=== PATIENT | male | born 1960 | race Caucasian/White ===

== ENCOUNTER 2017-06-15 06:35 | Day surgery (SDC) | payer BC, OTHER ==
[~2017-06-15] VITALS: Ht 177.8 cm; Wt 126.3 kg
[~2017-06-15 06:35] MED LIST: AMLO5 PO; CRUTCH2 USE; Calcitriol0.5 MCG PO; DOCU100 PO; ERGO50000 PO; HYDACE5 PO; HYDACE5325 PO; IBUP400 PO; PRED10 PO; [UNRECOGNIZED DRUG - REMARK]
[2017-06-15] MEDS ORDERED: LISI5 (07:11)
[2017-06-15] MEDS ORDERED: ERGO400 (07:11)
[2017-06-15] MEDS ORDERED: NITR.4SL (07:12)
[2017-06-15] MEDS ORDERED: ASPI81CH (07:12)
[2017-06-15] MEDS ORDERED: PANT40 (07:13)
== END 2017-06-15 08:32 | disposition home or self-care (01) ==
LOC: ORSCSDS 06:35
PROVIDERS: Internal Medicine Gastroenterology
PROC: 0DB68ZX Excision of Stomach, Via Natural or Artificial Opening Endoscopic, Diagnostic (ICD-10-PCS; principal; 2017-06-15 08:00)
PROC: 0D758ZZ Dilation of Esophagus, Via Natural or Artificial Opening Endoscopic (ICD-10-PCS; principal; 2017-06-15 08:00)
DX: R13.10 Dysphagia, unspecified (principal); K29.70 Gastritis, unspecified, without bleeding; B96.81 Helicobacter pylori [H. pylori] as the cause of diseases classified elsewhere; I10 Essential (primary) hypertension; E66.01 Morbid (severe) obesity due to excess calories; Z68.39 Body mass index [BMI] 39.0-39.9, adult; Z79.899 Other long term (current) drug therapy
CPT/HCPCS: 88305; 88342; C1726; J0330; J1980; J2405; J7120

== ENCOUNTER 2017-07-14 10:59 | Emergency (ER) | payer BC, OTHER ==
[~2017-07-14] VITALS: Ht 177.8 cm; Wt 79.4 kg
[~2017-07-14 10:59] MED LIST changes: +ASPI81CH; +ERGO400; +LISI5; +NITR.4SL; +PANT40
[2017-07-14] MEDS ORDERED: Calcitriol0.25 MCG (11:07)
[2017-07-14] MEDS ORDERED: Mobic15 MG PO (11:44)
[2017-07-14] MEDS ORDERED: CYCL10 PO (11:44)
== END 2017-07-14 11:50 | disposition home or self-care (01) ==
LOC: ER 10:59
DX: M43.6 Torticollis (principal); Z79.899 Other long term (current) drug therapy; Z79.82 Long term (current) use of aspirin; I10 Essential (primary) hypertension; Z87.442 Personal history of urinary calculi
CPT/HCPCS: 96372; 99283; J1885

== ENCOUNTER → 2019-10-25 | Outpatient (CLI) | payer BC, OTHER ==
[~2019-10-25] MED LIST changes: +CYCL10 PO; +Calcitriol0.25 MCG; +Mobic15 MG PO
[2019-10-25 14:43] LABS: Source, Urine Clean Catch
[2019-10-25 17:22] LABS: Bilirubin, Urine Neg (Neg); Blood, Urine 1+ (Neg); Glucose Qualitative, Urine Neg (Neg); Ketones, Urine Neg (Neg); Leukocyte Esterase, Urine 1+ (Neg); Nitrite, Urine Neg (Neg); Protein, Urine 2+ (Neg); Specific Gravity, Urine 1.025 (1.003-1.022); Urobilinogen, Urine NORM (Normal)
[2019-10-25 17:28] LABS: Appearance, Urine Clear (Clear); Color, Urine Yellow (P-Yellow)
[2019-10-25 17:30] LABS: Bacteria Rare /hpf; Calcium Oxalate Crystals Few /hpf; Red Blood Cells, Urine 0-2 /hpf (0-2); Squamous Epithelial Cells Not Seen /hpf (Few)
== END | disposition home or self-care (01) ==
LOC: LAB SHORT 14:39 → LAB 14:39 → LAB FUT 10-23 15:10
PROVIDERS: Internal Medicine
DX: R31.9 Hematuria, unspecified (principal); E55.9 Vitamin D deficiency, unspecified
CPT/HCPCS: 81001; 87086

== ENCOUNTER 2020-02-22 07:18 | Emergency (ER) | payer BC, OTHER ==
[~2020-02-22] VITALS: Ht 177.8 cm; Wt 131.5 kg
[~2020-02-22 07:18] MED LIST changes: +METPRE4DP PO; +OXYC5 PO; +Robaxin-750750 MG PO
[2020-02-22 08:53] LABS: BASOPHILS ABSOLUTE AUTO 0.04 K/mm3 (0.00-0.23); BASOPHILS PERCENT AUTO 1 % (0-2); EOSINOPHILS ABSOLUTE AUTO 0.07 K/mm3 (0.00-0.68); EOSINOPHILS PERCENT AUTO 1 % (0-6); Hemoglobin 13.4 g/dL (13.5-17.5); IMMATURE GRAN ABSOLUTE AUTO 0.05 K/mm3 (0.00-0.10); IMMATURE GRAN PERCENT AUTO 1 % (0-1); LYMPHOCYTES ABSOLUTE AUTO 1.78 K/mm3 (0.84-5.20); LYMPHOCYTES PERCENT AUTO 22 % (21-46); MONOCYTES ABSOLUTE AUTO 0.41 K/mm3 (0.16-1.47); MONOCYTES PERCENT AUTO 5 % (4-13); Mean Corpuscular HGB Conc 31.9 g/dL (31.5-36.5); Mean Corpuscular Volume 88 fL (80-100); Mean Platelet Volume 10.6 fL (9.1-12.4); NEUTROPHILS ABSOLUTE AUTO 5.84 K/mm3 (1.96-9.15); NEUTROPHILS PERCENT AUTO 71 % (41-73); Platelet Count 281 K/mm3 (150-400); RDW Coefficient Variation 12.9 % (11.7-14.2); RDW Standard Deviation 41.9 fL (35.1-46.3); Red Blood Cell Count 4.78 M/mm3 (4.30-5.90); White Blood Cell Count 8.19 K/mm3 (4.00-11.30)
[2020-02-22 09:18] LABS: Alanine Aminotransfer (ALT/SGP 32 U/L (12-78); Albumin, Blood 3.3 g/dL (3.4-5.0); Albumin/Globulin Ratio 0.8 (0.8-1.8); Alk Phos 64 U/L (50-136); Anion Gap 5 mmol/L (6-16); Aspartate Aminotrans (AST/SGOT 36 U/L (12-37); Bilirubin, Total 0.5 mg/dL (0.1-1.0); Blood Urea Nitrogen 17 mg/dL (8-24); Bun/Creatinine Ratio 16.5 (12.0-20.0); CO2, Blood 26 mmol/L (21-32); Calcium, Blood 8.9 mg/dL (8.5-10.1); Chloride, Blood 112 mmol/L (98-108); Creatinine, Blood 1.03 mg/dL (0.60-1.20); Glomerular Filtration Rate >60 (60-); Glucose, Blood 110 mg/dL (70-99); Potassium, Blood 5.1 mmol/L (3.5-5.5); Sodium, Blood 143 mmol/L (136-145); Total Protein, Blood 7.3 g/dL (6.4-8.2); Troponin I <0.015 ng/mL (0.000-0.040)
[2020-02-22] MEDS ORDERED: HYDR1TAB94 PO (10:24)
[2020-02-22] MEDS ORDERED: PRED20 PO (10:24)
== END 2020-02-22 10:35 | disposition home or self-care (01) ==
LOC: ER 07:18
PROVIDERS: Emergency Medicine
DX: R22.1 Localized swelling, mass and lump, neck (principal); I10 Essential (primary) hypertension; Z79.82 Long term (current) use of aspirin; Z79.899 Other long term (current) drug therapy
CPT/HCPCS: 36415; 70491; 80053; 83880; 84484; 85025; 85379; 93005; 93010; 96374; 96375; 99284-25; J1100; J2405; J3010; Q9967

== ENCOUNTER 2020-02-26 03:13 | Emergency (ER) | payer BC, OTHER ==
[~2020-02-26] VITALS: Ht 177.8 cm; Wt 131.5 kg
[~2020-02-26 03:13] MED LIST changes: +HYDR1TAB94 PO; +PRED20 PO
[2020-02-26 04:07] LABS: BASOPHILS ABSOLUTE AUTO 0.05 K/mm3 (0.00-0.23); BASOPHILS PERCENT AUTO 1 % (0-2); EOSINOPHILS ABSOLUTE AUTO 0.07 K/mm3 (0.00-0.68); EOSINOPHILS PERCENT AUTO 1 % (0-6); Hematocrit 43.4 % (37.0-53.0); Hemoglobin 13.6 g/dL (13.5-17.5); IMMATURE GRAN ABSOLUTE AUTO 0.48 K/mm3 (0.00-0.10); IMMATURE GRAN PERCENT AUTO 5 % (0-1); LYMPHOCYTES ABSOLUTE AUTO 3.37 K/mm3 (0.84-5.20); LYMPHOCYTES PERCENT AUTO 31 % (21-46); MONOCYTES ABSOLUTE AUTO 0.87 K/mm3 (0.16-1.47); MONOCYTES PERCENT AUTO 8 % (4-13); Mean Corpuscular HGB 27.9 pg (26.0-34.0); Mean Corpuscular HGB Conc 31.3 g/dL (31.5-36.5); Mean Corpuscular Volume 89 fL (80-100); Mean Platelet Volume 10.5 fL (9.1-12.4); NEUTROPHILS ABSOLUTE AUTO 5.92 K/mm3 (1.96-9.15); NEUTROPHILS PERCENT AUTO 55 % (41-73); Platelet Count 296 K/mm3 (150-400); RDW Coefficient Variation 13.2 % (11.7-14.2); RDW Standard Deviation 42.7 fL (35.1-46.3); Red Blood Cell Count 4.87 M/mm3 (4.30-5.90); White Blood Cell Count 10.76 K/mm3 (4.00-11.30)
[2020-02-26 04:26] LABS: Albumin, Blood 3.2 g/dL (3.4-5.0); Albumin/Globulin Ratio 0.9 (0.8-1.8); Bilirubin, Total 0.2 mg/dL (0.1-1.0); Bun/Creatinine Ratio 18.2 (12.0-20.0); Calcium, Blood 8.2 mg/dL (8.5-10.1); Creatinine, Blood 1.32 mg/dL (0.60-1.20); Globulin, Blood 3.4 g/dL (2.2-4.0); Potassium, Blood 3.6 mmol/L (3.5-5.5); Total Protein, Blood 6.6 g/dL (6.4-8.2)
[2020-02-26] MEDS ORDERED: Cleocin HCl300 MG PO (06:04)
== END 2020-02-26 07:10 | disposition home or self-care (01) ==
LOC: ER 03:13
PROVIDERS: Emergency Medicine
DX: R22.1 Localized swelling, mass and lump, neck (principal); M54.2 Cervicalgia; I10 Essential (primary) hypertension; Z87.442 Personal history of urinary calculi; Z79.82 Long term (current) use of aspirin; Z79.52 Long term (current) use of systemic steroids
CPT/HCPCS: 36415; 76536; 80053; 85025; 96374; 99284-25

== ENCOUNTER 2020-06-26 09:18 | Day surgery (SDC) | payer OTHER ==
[~2020-06-26] VITALS: Ht 177.8 cm; Wt 132.2 kg
[~2020-06-26 09:18] MED LIST changes: +Cleocin HCl300 MG PO
[2020-06-26] MEDS ORDERED: IBUP800 (09:32)
[2020-06-26] MEDS ORDERED: TUMS500 MG (09:34)
--- NOTE | 2020-06-26 11:23 | NUR ---
06/26/20 1123 Coreen Lazaro PATIENT REFUSED OFFERS OF PO FLUIDS
== END 2020-06-26 11:13 | disposition home or self-care (01) ==
LOC: ORSCSDS 09:18
PROVIDERS: Internal Medicine Gastroenterology
PROC: 0DB58ZX Excision of Esophagus, Via Natural or Artificial Opening Endoscopic, Diagnostic (ICD-10-PCS; principal; 2020-06-26 10:45)
PROC: 0D758ZZ Dilation of Esophagus, Via Natural or Artificial Opening Endoscopic (ICD-10-PCS; principal; 2020-06-26 10:45)
PROC: 0DB68ZX Excision of Stomach, Via Natural or Artificial Opening Endoscopic, Diagnostic (ICD-10-PCS; principal; 2020-06-26 10:45)
DX: R13.10 Dysphagia, unspecified (principal); K29.70 Gastritis, unspecified, without bleeding; K29.80 Duodenitis without bleeding; K44.9 Diaphragmatic hernia without obstruction or gangrene; K22.2 Esophageal obstruction; I10 Essential (primary) hypertension; E66.01 Morbid (severe) obesity due to excess calories; Z68.41 Body mass index [BMI] 40.0-44.9, adult
CPT/HCPCS: 88305; 88342; C1726; J2001; J2704; J7120

== ENCOUNTER 2020-12-20 10:21 | Day surgery (SDC) | payer BC, OTHER ==
[~2020-12-20 10:21] MED LIST changes: +IBUP800; +NITR.4SL SL; +THERA-D2000 UNIT PO; +TUMS500 MG
[2020-12-20] MEDS ORDERED: LISI5 PO (12:29)
--- NOTE | 2020-12-20 14:55 | NUR ---
FULL REPORT PROVIDED RAFA PATE TO ASSUME CARE OF PT.
--- NOTE | 2020-12-20 15:04 | NUR ---
PT TAKEN TO XRAY VIA WHEELCHAIR AND BACK TO RECOVERY ROOM WITH NO COMPLICATIONS.
--- NOTE | 2020-12-20 16:15 | NUR ---
DISCHARGE INSTRUCTIONS GIVEN WITH VERBAL AND WRITTEN UNDERSTANDING.
--- NOTE | 2020-12-20 16:44 | NUR ---
dr sanchez notified of pt large hematoma that is still at pacemaker site. We will be taking pt back in to the [facility] to evacuate and stop the bleeding. daughter notified.
--- NOTE | 2020-12-20 18:21 | NUR ---
IV ANCEF INFUSED AND SALINE LOCK REMOVED WITH CATHETER INTACT. PACEMAKER SITE WITHOUT SWELLING OR HEMATOMA. PT PLACED IN ARM SLING ON LEFT PRIOR TO DISCHARGE. PT TO PRIVATE VEHICLE PER W/C WITH ONE STAFF.
== END 2020-12-20 18:30 | disposition home or self-care (01) ==
LOC: ECHO 10:21 → EDSTATUS 11:00 → MHTC 11:44 → ECHO 18:30
DX: I49.5 Sick sinus syndrome (principal)
CPT/HCPCS: 33208; 71046; 99152; 99153; C1785; C1898; C8929; J0690; J1580; J1644; J2250; J3010; J7030; J7040; Q9957; Q9967

== ENCOUNTER 2020-12-27 13:52 | Observation (INO) | payer BC, OTHER ==
[~2020-12-27] VITALS: Ht 177.8 cm; Wt 132.5 kg
[~2020-12-27 13:52] MED LIST changes: +LISI5 PO
[2020-12-27 14:39] LABS: BASOPHILS ABSOLUTE AUTO 0.05 K/mm3 (0.00-0.23); BASOPHILS PERCENT AUTO 1 % (0-2); EOSINOPHILS PERCENT AUTO 1 % (0-6); Hematocrit 45.5 % (37.0-53.0); Hemoglobin 14.4 g/dL (13.5-17.5); IMMATURE GRAN ABSOLUTE AUTO 0.07 K/mm3 (0.00-0.10); IMMATURE GRAN PERCENT AUTO 1 % (0-1); LYMPHOCYTES ABSOLUTE AUTO 2.07 K/mm3 (0.84-5.20); LYMPHOCYTES PERCENT AUTO 22 % (21-46); MONOCYTES ABSOLUTE AUTO 0.37 K/mm3 (0.16-1.47); MONOCYTES PERCENT AUTO 4 % (4-13); Mean Corpuscular HGB 27.3 pg (26.0-34.0); Mean Corpuscular HGB Conc 31.6 g/dL (31.5-36.5); Mean Corpuscular Volume 86 fL (80-100); Mean Platelet Volume 10.3 fL (9.1-12.4); NEUTROPHILS ABSOLUTE AUTO 6.84 K/mm3 (1.96-9.15); NEUTROPHILS PERCENT AUTO 72 % (41-73); Platelet Count 314 K/mm3 (150-400); RDW Coefficient Variation 13.4 % (11.7-14.2); RDW Standard Deviation 41.9 fL (35.1-46.3); Red Blood Cell Count 5.27 M/mm3 (4.30-5.90)
[2020-12-27 15:13] LABS: Alanine Aminotransfer (ALT/SGP 34 U/L (12-78); Albumin, Blood 3.5 g/dL (3.4-5.0); Albumin/Globulin Ratio 0.8 (0.8-1.8); Alk Phos 75 U/L (50-136); Anion Gap 5 mmol/L (6-16); Aspartate Aminotrans (AST/SGOT 24 U/L (12-37); Bilirubin, Total 0.4 mg/dL (0.1-1.0); Blood Urea Nitrogen 23 mg/dL (8-24); Bun/Creatinine Ratio 18.3 (12.0-20.0); CO2, Blood 27 mmol/L (21-32); Calcium, Blood 9.1 mg/dL (8.5-10.1); Chloride, Blood 111 mmol/L (98-108); Creatinine, Blood 1.26 mg/dL (0.60-1.20); Globulin, Blood 4.4 g/dL (2.2-4.0); Glomerular Filtration Rate 59 (60-); Glucose, Blood 96 mg/dL (70-99); Potassium, Blood 4.3 mmol/L (3.5-5.5); Sodium, Blood 143 mmol/L (136-145); Total Protein, Blood 7.9 g/dL (6.4-8.2)
[2020-12-27 15:15] LABS: Troponin I <0.015 ng/mL (0.000-0.040)
[2020-12-27] MEDS ORDERED: Prinivil10 MG PO (15:21)
[2020-12-27] MEDS ORDERED: CALCITRIOL0.5 MC1 PO (15:21)
[2020-12-27] MEDS ORDERED: ERGO50000 PO (15:22)
[2020-12-27 22:52] LABS: CPK Creatine Kinase 41 U/L (39-308); Troponin I <0.015 ng/mL (0.000-0.040)
[2020-12-27 22:54] LABS: Creatine Kinase MB <1.0 ng/mL (0.0-3.6); Creatine Kinase MB Index Unable to Calculate (0.0-4.0)
[2020-12-28] MEDS ORDERED: IBUP600 PO (15:06)
[2020-12-28] MEDS ORDERED: AMLO10 PO (15:06)
[2020-12-28] MEDS ORDERED: PANT40 PO (15:07)
== END 2020-12-28 16:00 | disposition home or self-care (01) ==
LOC: ER 13:52 → MEDS 13:53
PROVIDERS: Emergency Medicine; ADMIT Internal Medicine
DX: R07.89 Other chest pain (principal); E66.01 Morbid (severe) obesity due to excess calories; Z68.41 Body mass index [BMI] 40.0-44.9, adult; E89.0 Postprocedural hypothyroidism; I49.5 Sick sinus syndrome; I13.10 Hypertensive heart and chronic kidney disease without heart failure, with stage 1 through stage 4 chronic kidney disease, or unspecified chronic kidney disease; N18.30 Chronic kidney disease, stage 3 unspecified; E83.51 Hypocalcemia; K21.9 Gastro-esophageal reflux disease without esophagitis; K76.0 Fatty (change of) liver, not elsewhere classified; Z95.0 Presence of cardiac pacemaker
CPT/HCPCS: 36415; 71046; 71260; 80053; 82550; 82553; 84484; 85025; 93005; 93010; 93280; 93308; 93321; 99285-25; A9270; G0378; Q9967

== ENCOUNTER 2020-12-30 16:34 | Emergency (ER) | payer BC, OTHER ==
[~2020-12-30] VITALS: Ht 177.8 cm; Wt 133.8 kg
[~2020-12-30 16:34] MED LIST changes: +AMLO10 PO; +CALCITRIOL0.5 MC1 PO; +IBUP600 PO; +PANT40 PO; +Prinivil10 MG PO
[2020-12-30 17:30] LABS: BASOPHILS ABSOLUTE AUTO 0.04 K/mm3 (0.00-0.23); BASOPHILS PERCENT AUTO 0 % (0-2); EOSINOPHILS PERCENT AUTO 2 % (0-6); Hematocrit 46.5 % (37.0-53.0); Hemoglobin 14.5 g/dL (13.5-17.5); IMMATURE GRAN ABSOLUTE AUTO 0.03 K/mm3 (0.00-0.10); IMMATURE GRAN PERCENT AUTO 0 % (0-1); LYMPHOCYTES ABSOLUTE AUTO 2.31 K/mm3 (0.84-5.20); LYMPHOCYTES PERCENT AUTO 24 % (21-46); MONOCYTES ABSOLUTE AUTO 0.53 K/mm3 (0.16-1.47); MONOCYTES PERCENT AUTO 6 % (4-13); Mean Corpuscular HGB 27.1 pg (26.0-34.0); Mean Corpuscular HGB Conc 31.2 g/dL (31.5-36.5); Mean Corpuscular Volume 87 fL (80-100); Mean Platelet Volume 10.4 fL (9.1-12.4); NEUTROPHILS ABSOLUTE AUTO 6.59 K/mm3 (1.96-9.15); NEUTROPHILS PERCENT AUTO 68 % (41-73); Platelet Count 331 K/mm3 (150-400); RDW Coefficient Variation 13.5 % (11.7-14.2); RDW Standard Deviation 43.3 fL (35.1-46.3); Red Blood Cell Count 5.35 M/mm3 (4.30-5.90)
[2020-12-30 18:07] LABS: Alanine Aminotransfer (ALT/SGP 33 U/L (12-78); Albumin, Blood 3.6 g/dL (3.4-5.0); Albumin/Globulin Ratio 0.8 (0.8-1.8); Alk Phos 77 U/L (50-136); Anion Gap 5 mmol/L (6-16); Aspartate Aminotrans (AST/SGOT 25 U/L (12-37); Bilirubin, Total 0.2 mg/dL (0.1-1.0); Blood Urea Nitrogen 28 mg/dL (8-24); Bun/Creatinine Ratio 18.5 (12.0-20.0); CO2, Blood 24 mmol/L (21-32); Calcium, Blood 9.2 mg/dL (8.5-10.1); Chloride, Blood 113 mmol/L (98-108); Creatinine, Blood 1.51 mg/dL (0.60-1.20); Globulin, Blood 4.5 g/dL (2.2-4.0); Glomerular Filtration Rate 47 (60-); Glucose, Blood 123 mg/dL (70-99); Potassium, Blood 4.3 mmol/L (3.5-5.5); Sodium, Blood 142 mmol/L (136-145); Total Protein, Blood 8.1 g/dL (6.4-8.2); Troponin I <0.015 ng/mL (0.000-0.040)
[2020-12-30 19:50] LABS: SARS-Cov-2 (COVID-19) PCR, MMC NEGATIVE (NEGATIVE)
== END 2020-12-30 21:30 | disposition other institution (70) ==
LOC: ER 16:34
PROVIDERS: Physician Assistant; Student in an Organized Health Care Education/Training Program
DX: R00.1 Bradycardia, unspecified (principal); R07.9 Chest pain, unspecified; I12.9 Hypertensive chronic kidney disease with stage 1 through stage 4 chronic kidney disease, or unspecified chronic kidney disease; N18.30 Chronic kidney disease, stage 3 unspecified; Z95.0 Presence of cardiac pacemaker; Z20.822 Contact with and (suspected) exposure to COVID-19
CPT/HCPCS: 36415; 71046; 80053; 83880; 84484; 85025; 93005; 93010; 99285-25; U0004

== ENCOUNTER 2021-03-25 13:37 | Emergency (ER) | payer BC, OTHER ==
[~2021-03-25] VITALS: Ht 177.8 cm; Wt 136.1 kg
[2021-03-25 14:17] LABS: BASOPHILS ABSOLUTE AUTO 0.04 K/mm3 (0.00-0.23); BASOPHILS PERCENT AUTO 1 % (0-2); EOSINOPHILS ABSOLUTE AUTO 0.17 K/mm3 (0.00-0.68); EOSINOPHILS PERCENT AUTO 3 % (0-6); Hematocrit 40.7 % (37.0-53.0); Hemoglobin 13.1 g/dL (13.5-17.5); IMMATURE GRAN ABSOLUTE AUTO 0.07 K/mm3 (0.00-0.10); IMMATURE GRAN PERCENT AUTO 1 % (0-1); LYMPHOCYTES ABSOLUTE AUTO 1.79 K/mm3 (0.84-5.20); LYMPHOCYTES PERCENT AUTO 26 % (21-46); MONOCYTES ABSOLUTE AUTO 0.32 K/mm3 (0.16-1.47); MONOCYTES PERCENT AUTO 5 % (4-13); Mean Corpuscular HGB 27.6 pg (26.0-34.0); Mean Corpuscular HGB Conc 32.2 g/dL (31.5-36.5); Mean Corpuscular Volume 86 fL (80-100); Mean Platelet Volume 9.9 fL (9.1-12.4); NEUTROPHILS ABSOLUTE AUTO 4.53 K/mm3 (1.96-9.15); NEUTROPHILS PERCENT AUTO 65 % (41-73); Platelet Count 304 K/mm3 (150-400); RDW Coefficient Variation 13.7 % (11.7-14.2); RDW Standard Deviation 42.7 fL (35.1-46.3); Red Blood Cell Count 4.74 M/mm3 (4.30-5.90); White Blood Cell Count 6.92 K/mm3 (4.00-11.30)
[2021-03-25 14:40] LABS: Alanine Aminotransfer (ALT/SGP 31 U/L (12-78); Albumin/Globulin Ratio 0.7 (0.8-1.8); Alk Phos 70 U/L (50-136); Anion Gap 5 mmol/L (6-16); Aspartate Aminotrans (AST/SGOT 22 U/L (12-37); Bilirubin, Total 0.2 mg/dL (0.1-1.0); Blood Urea Nitrogen 13 mg/dL (8-24); CO2, Blood 27 mmol/L (21-32); Calcium, Blood 9.5 mg/dL (8.5-10.1); Chloride, Blood 112 mmol/L (98-108); Creatinine, Blood 1.18 mg/dL (0.60-1.20); Globulin, Blood 4.3 g/dL (2.2-4.0); Glomerular Filtration Rate >60 (60-); Glucose, Blood 148 mg/dL (70-99); Potassium, Blood 3.9 mmol/L (3.5-5.5); Sodium, Blood 144 mmol/L (136-145); Total Protein, Blood 7.3 g/dL (6.4-8.2); Troponin I <0.015 ng/mL (0.000-0.040)
== END 2021-03-25 18:10 | disposition home or self-care (01) ==
LOC: ER 13:37
PROVIDERS: Emergency Medicine
DX: R51.9 Headache, unspecified (principal); M54.2 Cervicalgia; R42 Dizziness and giddiness; I12.9 Hypertensive chronic kidney disease with stage 1 through stage 4 chronic kidney disease, or unspecified chronic kidney disease; N18.30 Chronic kidney disease, stage 3 unspecified
CPT/HCPCS: 36415; 71046; 80053; 83690; 83880; 84484; 85025; 93005; 93010; 99284-25

== ENCOUNTER 2021-06-26 12:47 | Emergency (ER) | payer BC, OTHER ==
[~2021-06-26] VITALS: Ht 177.8 cm; Wt 136.1 kg
[2021-06-26] MEDS ORDERED: Norco 5-325 Ta1 EACH PO (14:46)
[2021-06-26] MEDS ORDERED: IBU600 M1 PO (14:46)
[2021-06-26] MEDS ORDERED: CYCL10 PO (14:46)
== END 2021-06-26 15:26 | disposition home or self-care (01) ==
LOC: ER 12:47
DX: M54.50 Low back pain, unspecified (principal); G89.29 Other chronic pain; M54.6 Pain in thoracic spine; Z79.899 Other long term (current) drug therapy; I12.9 Hypertensive chronic kidney disease with stage 1 through stage 4 chronic kidney disease, or unspecified chronic kidney disease; N18.30 Chronic kidney disease, stage 3 unspecified
CPT/HCPCS: 72080; 99283-25; A9270; J1885

== ENCOUNTER 2022-12-20 11:26 | Emergency (ER) | payer BC, OTHER ==
[~2022-12-20] VITALS: Ht 177.8 cm; Wt 81.7 kg
[~2022-12-20 11:26] MED LIST changes: +ALBU90OI INH; +IBU600 M1 PO; +Norco 5-325 Ta1 EACH PO
[2022-12-20 12:14] LABS: BASOPHILS ABSOLUTE AUTO 0.03 K/mm3 (0.00-0.23); BASOPHILS PERCENT AUTO 0 % (0-2); EOSINOPHILS ABSOLUTE AUTO 0.09 K/mm3 (0.00-0.68); EOSINOPHILS PERCENT AUTO 1 % (0-6); Hematocrit 40.7 % (37.0-53.0); Hemoglobin 13.3 g/dL (13.5-17.5); IMMATURE GRAN ABSOLUTE AUTO 0.03 K/mm3 (0.00-0.10); IMMATURE GRAN PERCENT AUTO 0 % (0-1); LYMPHOCYTES ABSOLUTE AUTO 1.86 K/mm3 (0.84-5.20); LYMPHOCYTES PERCENT AUTO 26 % (21-46); MONOCYTES ABSOLUTE AUTO 0.37 K/mm3 (0.16-1.47); MONOCYTES PERCENT AUTO 5 % (4-13); Mean Corpuscular HGB 27.2 pg (26.0-34.0); Mean Corpuscular HGB Conc 32.7 g/dL (31.5-36.5); Mean Corpuscular Volume 83 fL (80-100); Mean Platelet Volume 10.9 fL (9.1-12.4); NEUTROPHILS ABSOLUTE AUTO 4.84 K/mm3 (1.96-9.15); NEUTROPHILS PERCENT AUTO 67 % (41-73); Platelet Count 283 K/mm3 (150-400); RDW Coefficient Variation 13.5 % (11.7-14.2); RDW Standard Deviation 40.9 fL (35.1-46.3); Red Blood Cell Count 4.89 M/mm3 (4.30-5.90); White Blood Cell Count 7.22 K/mm3 (4.00-11.30)
[2022-12-20 12:38] LABS: Albumin, Blood 3.2 g/dL (3.4-5.0); Albumin/Globulin Ratio 0.8 (0.8-1.8); Bilirubin, Total 0.3 mg/dL (0.1-1.0); Bun/Creatinine Ratio 13.1 (12.0-20.0); Calcium, Blood 8.8 mg/dL (8.5-10.1); Creatinine, Blood 1.45 mg/dL (0.60-1.20); Globulin, Blood 3.8 g/dL (2.2-4.0)
[2022-12-20] MEDS ORDERED: OZEMPIC0.25 MG/01 SQ (12:50)
[2022-12-20] MEDS ORDERED: ELIQUIS5 M3 PO (12:51)
[2022-12-20] MEDS ORDERED: TOPIRAMATE ER50 M1 PO (12:51)
[2022-12-20] MEDS ORDERED: ELIQUIS5 M2 PO (12:52)
[2022-12-20] MEDS ORDERED: LISI20 PO (12:52)
[2022-12-20 12:56] VITALS: BP 141/75
[2022-12-20] MEDS ORDERED: MECL25 PO (14:10)
== END 2022-12-20 15:27 | disposition home or self-care (01) ==
LOC: ER 11:26
PROVIDERS: Student in an Organized Health Care Education/Training Program
DX: R42 Dizziness and giddiness (principal); I12.9 Hypertensive chronic kidney disease with stage 1 through stage 4 chronic kidney disease, or unspecified chronic kidney disease; N18.30 Chronic kidney disease, stage 3 unspecified; Z87.442 Personal history of urinary calculi; Z79.01 Long term (current) use of anticoagulants; Z79.899 Other long term (current) drug therapy; Z95.0 Presence of cardiac pacemaker
CPT/HCPCS: 71046; 80053; 85025; 93005; 93010; 99284-25